=== PATIENT | male | born 1940 | race Caucasian/White ===

== ENCOUNTER 2017-08-03 18:04 | Emergency (ER) | payer MEDICAID, OTHER ==
[~2017-08-03] VITALS: Ht 177.8 cm; Wt 74.8 kg
[2017-08-03 18:11] VITALS: BP_SYST 119
[2017-08-03 18:52] VITALS: BP_SYST 119
== END 2017-08-03 18:48 ==
LOC: SED 18:04
DX: Z02.89 Encounter for other administrative examinations (principal); Z97.8 Presence of other specified devices
CPT/HCPCS: 99283